=== PATIENT | female | born 1980 | race Caucasian/White ===

== ENCOUNTER 2019-02-24 21:18 | Emergency (ER) | payer MEDICAID, OTHER ==
[~2019-02-24] VITALS: Ht 152.4 cm; Wt 129.2 kg
[2019-02-25 00:38] LABS: BASO % 0.6 % (0.0-1.0); EOS # 0.2 10^3/uL (0.0-0.5); EOS % 2.2 % (0.0-3.0); HEMATOCRIT 36.9 % (36.0-47.0); HEMOGLOBIN 12.7 g/dl (12.0-15.5); LYMPH # 1.6 10^3/uL (1.5-5.0); LYMPH % 21.8 % (24.0-44.0); MEAN CORPUSCULAR HEMOGLOBIN 30.4 pg (27.0-33.0); MEAN CORPUSCULAR HGB CONC 34.4 g/dl (32.0-36.5); MEAN CORPUSCULAR VOLUME 88.3 fl (80.0-96.0); MONO # 0.7 10^3/uL (0.0-0.8); MONO % 9.4 % (0.0-5.0); NEUTROPHILS # 4.7 10^3/uL (1.5-8.5); NEUTROPHILS % 65.7 % (36.0-66.0); PLATELET COUNT, AUTOMATED 229 10^3/uL (150-450); RED BLOOD COUNT 4.18 10^6/uL (4.00-5.40); WHITE BLOOD COUNT 7.1 10^3/uL (4.0-10.0)
[2019-02-25 00:49] LABS: INR 1.11; PARTIAL THROMBOPLASTIN TIME 32.3 SECONDS (25.0-38.4)
[2019-02-25 01:09] LABS: ALBUMIN 3.4 GM/DL (3.2-5.2); ALT/SGPT 16 U/L (12-78); BILIRUBIN,DIRECT 0.1 MG/DL (0.0-0.2); BILIRUBIN,TOTAL 0.3 MG/DL (0.2-1.0); BLOOD UREA NITROGEN 8 MG/DL (7-18); CALCIUM LEVEL 8.4 MG/DL (8.5-10.1); CARBON DIOXIDE LEVEL 24 MEQ/L (21-32); CHLORIDE LEVEL 105 MEQ/L (98-107); CK-MB VALUE MASS < 1.0 NG/ML (<3.6); CPK CREATINE PHOSPHOKINASE 40 U/L (26-192); CREATININE FOR GFR 0.71 MG/DL (0.55-1.30); GLOMERULAR FILTRATION RATE > 60.0 (>60); GLUCOSE, FASTING 103 MG/DL (70-100); LIPASE 76 U/L (73-393); POTASSIUM SERUM 4.1 MEQ/L (3.5-5.1); SODIUM LEVEL 138 MEQ/L (136-145); TOTAL PROTEIN 7.1 GM/DL (6.4-8.2); TROPONIN I < 0.02 NG/ML (< 0.10)
[2019-02-25] MEDS ORDERED: ISOVUE-370 76% 100ML VIAL (Q9967) As Ordered ONE (01:33)
[2019-02-25 01:47] VITALS: BP 131/67
--- NOTE | 2019-02-25 02:40 | REPVR ---
EXAM: CT Angiography Chest With Contrast EXAM DATE/TIME: 02/25/2019 1:47 AM CLINICAL HISTORY: 38 years old, female; Chest pain; dyspnea TECHNIQUE: Imaging protocol: Computed tomographic angiography of the chest with intravenous contrast. 3D rendering: MIP reconstructed images were created and reviewed. Radiation optimization: All CT scans at this facility use at least one of these dose optimization techniques: automated exposure control; mA and/or kV adjustment per patient size (includes targeted exams where dose is matched to clinical indication); or iterative reconstruction. Contrast material: ISO 370; Contrast volume: 75 ml; Contrast route: IV; COMPARISON: No relevant prior studies available. FINDINGS: Pulmonary arteries: No pulmonary embolism is identified. Aorta: There is no thoracic aortic aneurysm, pseudoaneurysm, penetrating atherosclerotic ulcer, or dissection. Lungs: There is a 6 mm solid pulmonary nodule in the right upper lobe (image 49 of the axial series 401). There is a 4 mm solid subpleural nodule along the minor fissure projecting into the right middle lobe and two 6 mm solid pulmonary nodules in the right middle lobe (images 80 and 87 of the axial series 401). There are 5 mm and 6 mm calcified granulomas in the right lower lobe (image 83 of the axial series 401). There are solid peribronchovascular nodules in the left upper lobe measuring up to 8 mm(images 44, 46, 49, 50, and 52-58 of the axial series 401). There are solid peribronchovascular nodules in the left lower lobe measuring up to 14 mm (images 86-102 of the axial series 401). Pleural space: Unremarkable. No pneumothorax. No pleural effusion. Heart: No cardiomegaly. No pericardial effusion. The ratio of the diameter of the right ventricle to the diameter of the left ventricle measures less than 1, which is within normal limits and there is no evidence for a right ventricular strain. Mediastinum: No mediastinal mass, hemorrhage, or pneumomediastinum. Limited liver: The imaged portion of the liver is unremarkable. The inferior aspect of the right hepatic lobe was not fully imaged. Gallbladder and bile ducts: No calcified gallstones are seen. No gallbladder wall thickening, pericholecystic fluid, or pericholecystic inflammatory changes are identified. No dilation of the intrahepatic or extrahepatic bile ducts is noted. Limited pancreas: The imaged portion of the pancreas is unremarkable. The head of the pancreas was not fully imaged. No dilation of the main pancreatic duct is noted. Spleen: The spleen is heterogeneous in appearance, which is likely secondary to the arterial timing of the contrast bolus. No splenomegaly. There are several small accessory spleens. Adrenals: Normal. No adrenal mass. Limited kidneys: There is no hydronephrosis. The kidneys were not fully imaged. Lymph nodes: There is right paratracheal, subcarinal, and bilateral hilar lymphadenopathy. For example, there is a 14 mm right paratracheal lymph node, a 16 mm subcarinal lymph node, a 19 mm right hilar lymph node, and a 15 mm left hilar lymph node, which were measured in short axis. There are calcified subcarinal and right hilar lymph nodes. Bones/joints: The imaged bony structures are intact. There is no suspicious osteolytic or osteoblastic lesion. Soft tissues: Unremarkable. IMPRESSION: 1. No pulmonary embolism. 2. Right paratracheal, subcarinal, and bilateral hilar lymphadenopathy, calcified granulomas, and pulmonary nodules as detailed above for which sarcoidosis should be considered. See management guidelines below. [employer] 2017 GUIDELINES FOR MANAGEMENT OF INCIDENTAL PULMONARY NODULES: Multiple solid nodules >8 mm: In a low risk patient, CT at 3-6 months, then consider CT at 18-24 months. Use most suspicious nodule as guide to management. Follow-up intervals may vary according to size and risk. In a high risk patient, CT at 3-6 months, then at 18-24 months. High Risk Patients as defined in the 2017 Fleischner Society Guidelines: ?History of heavy smoking ?Exposure to asbestos, radium, or uranium ?Family history of lung cancer ?Emphysema and pulmonary fibrosis (IPF in particular) ?Older age ?Sex (females at greater risk than men) ?Race (Blacks and at higher risk) ?Marginal spiculation / suspicious morphology ?Upper lobe location (also apex) ?Multiple nodules (2-5 nodules highest risk) ?Exceptions, such as technically suboptimal scanning Debo H, Marcelo DP, Tonyo DESTINEY, et al. Guidelines for Management of Incidental Pulmonary Nodules Detected on CT images: From the Fleischner Society 2017. Radiology, December 2016;284(1):228-243. http://pubs.rsna.org/doi/pdf/10.1148/[email or web address] Electronically signed by: Vimal Pacheco On 02/25/2019 02:39:51 AM
[2019-02-25] MEDS ORDERED: NS 500 ML IV ONE (02:45)
[2019-02-25] MEDS ORDERED: KETOROLAC 30 MG/ML VIAL (J1885) IV ONE (02:45)
[2019-02-25] MEDS ORDERED: SUCRALFATE SUSP 1GM/10ML UD PO ONE (03:45)
[2019-02-25] MEDS ORDERED: SIMETHICONE 80 MG CHEW TAB PO ONE (03:45)
[2019-02-25] MEDS ORDERED: PROT1TAB2 PO (03:57)
[2019-02-25] MEDS ORDERED: SUCR1SS PO (03:57)
--- NOTE | 2019-02-26 07:02 | ECGEPIP ---
[facility] - ED Test Date: 2019-02-24 Pat Name: JOHANNA CARRION Department: Room: - Gender: Female [employer]: PRITI : 1980 Requested By: DARIUS FORBES Order Number: [id number] Reading MD: Prabhu Baez Measurements Intervals [place] Rate: 94 P: 65 FL: 130 QRS: 59 QRSD: 88 T: 64 QT: 329 QTc: 411 Interpretive Statements SINUS RHYTHM NO PRIORS FOR COMPARISON Electronically Signed on 02-26-2019 7:02:31 EDT by Prabhu Baez
--- NOTE | 2019-03-05 13:27 | ED PDOC ---
Post-Departure Follow-Up cta chest faxed formal report of sultana augustin for fu Alena Barnett MD Mar 05, 2019 13:27
== END 2019-02-25 04:10 | disposition home or self-care (01) ==
LOC: M ED 21:18
DX: J98.4 Other disorders of lung (principal); J84.10 Pulmonary fibrosis, unspecified; K21.9 Gastro-esophageal reflux disease without esophagitis; R10.13 Epigastric pain
CPT/HCPCS: 71275; 80048; 80076; 82550; 82553; 83690; 85025; 85610; 85730; 93005; 96361; 96374; 99284; J1885; Q9967

== ENCOUNTER → 2019-03-14 | Outpatient (CLI) | payer OTHER ==
[~2019-03-14] MED LIST: METHACHOLINE KIT (J7674) INH ONE; PROT1TAB2 PO; SUCR1SS PO
--- NOTE | 2019-03-14 12:19 | PFTRPT ---
Height: 60.50 Inches Weight: 284.00 Lbs BSA: 2.18 Diagnosis: R06 DATE OF PROCEDURE: 03/14/2019 ORDERED BY: Dr. Martins INTERPRETATION: Study of excellent technical quality. Under protocol, methacholine was administered. At a dose of 1.25mg or 0.125 CDUs, a 28% decline in the FEV1 was noted. PC was not calculated. Flow rates did return to baseline post bronchodilator administration. IMPRESSION: Positive methacholine challenge study. MTDD
--- NOTE | 2019-03-15 16:22 | ECHO ---
DATE OF PROCEDURE: 03/14/2019 DATE OF : 1980 AGE: 38 GENDER: Female HEIGHT: 61 inches WEIGHT: 284 pounds BODY SURFACE AREA: 2.19 m2 OUTPATIENT REFERRING PHYSICIAN: Dr. Taylor Martins INDICATION: Dyspnea. MEASUREMENTS: 2-D Measurements: RV: 3.6 cm LV: 4.9 cm Septum: 1.0 cm Posterior wall: 1.0 cm Aortic root: 2.7 cm LA: 3.1 cm LVEF: 75% Doppler Measurements: AV: 1.48 m/s LVOT: 1.07 m/s LVOT diameter: 1.8 cm MV: E: 100, A: 87, EA ratio: 1.1 Early mitral deceleration time: 200 ms E prime: 10.9, A prime: 13, E/E prime ratio: 9.2 PCWP: 15.2 mmHg PV: 0.8 m/s Pulmonary artery acceleration time: 85 ms PASP: 41 mmHg IVC: 1.6 cm COMMENTS: Normal sinus rhythm without intraventricular conduction disturbance. Technically challenging study in light of the patient's body habitus but diagnostically useful information was still obtained. M-mode and two-dimensional echocardiography was performed with pulsed, continuous wave, color flow and tissue Doppler studies. Normal left ventricular size, wall thickness and hyperkinetic wall motion. Normal left atrial size with degree of LV diastolic dysfunction and current estimated mean left atrial pressure slightly elevated. Right heart chamber sizes upper limits of normal with normal wall motion and Doppler evidence of moderate pulmonary hypertension. Normal IVC size and collapse against an elevated central venous pressure at this time. Normal appearing and functioning valvular structures. No apparent intracardiac mass or pericardial effusion. Normal aortic root size.
== END ==
LOC: M CARPUL 11:05
PROVIDERS: ATTEND Internal Medicine Pulmonary Disease
DX: R91.8 Other nonspecific abnormal finding of lung field (principal); R06.00 Dyspnea, unspecified
CPT/HCPCS: 93306; 94070; 95070; J7674

== ENCOUNTER → 2019-06-21 | Outpatient (CLI) | payer OTHER ==
[~2019-06-21] MED LIST changes: -METHACHOLINE KIT (J7674) INH ONE
== END ==
LOC: M SLEEP 19:50
PROVIDERS: ATTEND Internal Medicine Pulmonary Disease
DX: G47.30 Sleep apnea, unspecified (principal)

== ENCOUNTER 2019-07-29 08:04 | Emergency (ER) | payer OTHER ==
[~2019-07-29] VITALS: Ht 152.4 cm; Wt 120.8 kg
[2019-07-29] MEDS ORDERED: FLUT1INH3 (08:16)
[2019-07-29] MEDS ORDERED: CYCL10TA (08:16)
[2019-07-29] MEDS ORDERED: ALBU8.5H (08:16)
[2019-07-29] MEDS ORDERED: IBUP80TA (08:16)
[2019-07-29 10:10] VITALS: BP 119/80
[2019-07-29 10:15] LABS: INFLUENZA A AMPLIFICATION NEGATIVE (NEGATIVE); INFLUENZA B AMPLIFICATION NEGATIVE (NEGATIVE)
== END 2019-07-29 10:25 | disposition home or self-care (01) ==
LOC: M ED 08:04
DX: J06.9 Acute upper respiratory infection, unspecified (principal); J45.909 Unspecified asthma, uncomplicated; I27.20 Pulmonary hypertension, unspecified; Z91.018 Allergy to other foods; Z79.899 Other long term (current) drug therapy

== ENCOUNTER → 2023-05-01 | Outpatient (CLI) | payer OTHER ==
[~2023-05-01] MED LIST changes: +ALBU8.5H; +CYCL-707; +FLUT1INH3; +IBUP80TA
== END ==
LOC: M PLAIMG 10:17
PROVIDERS: ATTEND Registered Nurse
DX: M25.512 Pain in left shoulder (principal)

== ENCOUNTER → 2023-05-01 | Outpatient (CLI) | payer OTHER | LOC: M WHC 09:27 | PROVIDERS: ATTEND Nurse Practitioner Family | DX: Z12.31 Encounter for screening mammogram for malignant neoplasm of breast (principal) ==

== ENCOUNTER → 2023-08-19 | Outpatient (CLI) | payer OTHER ==
[2023-08-19 11:15] LABS: HEMATOCRIT 42.7 % (36.0-47.0); HEMOGLOBIN 14.8 g/dl (12.0-15.5); MEAN CORPUSCULAR HEMOGLOBIN 30.5 pg (27.0-33.0); MEAN CORPUSCULAR HGB CONC 34.7 g/dl (32.0-36.5); PLATELET COUNT, AUTOMATED 199 10^3/uL (150-450); RED BLOOD COUNT 4.85 10^6/uL (4.00-5.40); WHITE BLOOD COUNT 5.6 10^3/uL (4.0-10.0)
[2023-08-19 11:37] LABS: HEMOGLOBIN A1c 5.6 % (4.0-6.0)
[2023-08-19 11:45] LABS: ALBUMIN 3.5 G/DL (3.2-5.2); ALKALINE PHOSPHATASE 66 U/L (46-116); ALT/SGPT 15 U/L (7.0-40); AST/SGOT 17 U/L (<34); BILIRUBIN,TOTAL 0.6 MG/DL (0.3-1.2); BLOOD UREA NITROGEN 11 MG/DL (9-23); CALCIUM LEVEL 8.5 MG/DL (8.5-10.1); CARBON DIOXIDE LEVEL 26 MMOL/L (20-31); CHLORIDE LEVEL 105 MMOL/L (98-107); CHOLESTEROL LEVEL 137 MG/DL (<200); CHOLESTEROL RISK RATIO 3.64 (<5); CREATININE FOR GFR 0.74 MG/DL (0.55-1.30); GLOMERULAR FILTRATION RATE > 60.0 (>58); GLUCOSE, FASTING 102 MG/DL (60-100); HDL CHOLESTEROL 37.6 MG/DL (>40); LDL CHOLESTEROL 68.8 MG/DL (<100); NON-HDL-C 99.4 MG/DL; POTASSIUM SERUM 4.1 MMOL/L (3.5-5.1); SODIUM LEVEL 139 MMOL/L (136-145); TOTAL PROTEIN 6.7 G/DL (5.7-8.2); TRIGLYCERIDES LEVEL 153 MG/DL (<150)
[2023-08-19 11:46] LABS: THYROID STIMULATING HORMONE 2.728 uIU/ML (0.55-4.78)
[2023-08-19 11:49] LABS: FREE T3 3.8 PG/ML (2.3-4.2)
== END ==
LOC: M LAB 10:28
PROVIDERS: ATTEND Registered Nurse
DX: E66.8 Other obesity (principal)